=== PATIENT | male | born 1960 | race Caucasian/White ===

== ENCOUNTER 2024-05-16 22:13 | Observation (INO) ==
[2024-05-16 22:41] LABS: ABS Eosinophils 0.1 10^3/uL (0.0-0.5); ABS Lymphocytes 0.6 10^3/uL (1.0-4.8); ABS Neutrophils 14.9 10^3/uL (1.5-7.6); Eosinophil % 0.5 %; Hematocrit 51.9 % (38-53); Hemoglobin 17.5 g/dL (13.2-16.3); Lymphocyte % 3.6 %; Mean Corpuscular Hemoglobin 30.1 pg (27-33); Mean Corpuscular Hgb Conc 33.8 g/dL (31-36); Mean Platelet Volume 8.7 fL (7.5-11.2); Platelet Count 272 10^3/uL (150-450); Red Blood Count 5.83 10^6/uL (4.06-5.63); Red Cell Distribution Width 14.3 % (12-17); White Blood Count 16.6 10^3/uL (3.6-10.2)
[2024-05-16 22:48] LABS: INR 1.13 (0.85-1.14)
[2024-05-16] MEDS: Lactated Ringers 1000 ml BAG 1,000 ML IV ONE (22:54)
[2024-05-16 23:11] LABS: High Sens Troponin Baseline 4 pg/mL (<20)
[2024-05-16 23:24] LABS: ALT 57 U/L (7-52); Albumin 5.1 g/dL (3.2-5.2); Albumin/Globulin Ratio 1.9 (1-3); Alkaline Phosphatase 64 U/L (35-149); Anion Gap 12 mmol/L (2-16); Blood Urea Nitrogen 21 mg/dL (6-24); CO2 Carbon Dioxide 25 mmol/L (22-32); Calcium 10.2 mg/dL (8.6-10.3); Chloride 101 mmol/L (101-111); Creatinine, Serum 1.31 mg/dL (0.67-1.17); Globulin 2.7 g/dL (2-4); Glucose 153 mg/dL (70-100); Lipase 50 U/L (11.0-82.0); Sodium 138 mmol/L (135-145); Total Bilirubin 0.9 mg/dL (0.2-1.0); Total Protein 7.8 g/dL (6.4-8.9); eGFR CKD-EPI 60.8 (>60)
[2024-05-17] MEDS: Ondansetron 4 mg VIAL 2 MG/ML 2 ml VIAL IV ONE (00:40)
[2024-05-17 01:29] LABS: Potassium Redraw 4.2 mmol/L (3.5-5.0)
[2024-05-17 02:04] LABS: Urine Appearance Clear; Urine Bilirubin Negative (Negative); Urine Blood Negative (Negative); Urine Color Yellow; Urine Glucose Negative (Negative); Urine Ketones Negative (Negative); Urine Nitrite Negative (Negative); Urine Protein 2+ (>=100 mg/dL) (Negative); Urine Specific Gravity 1.022 (1.002-1.030); Urine Urobilinogen Negative (Negative)
[2024-05-17 02:10] LABS: Urine Bacteria Absent /HPF (Absent); Urine Red Blood Cell Absent /HPF (0-Trace); Urine Squamous Epithelial Cell Present /HPF (Absent); Urine White Blood Cell Absent /HPF (0-Trace)
[2024-05-17] MEDS: Morphine 2 MG/ML SYRINGE IV ONE (03:01)
[2024-05-17] MEDS: Lactated Ringers 1000 ml BAG 1,000 ML IV ONE (03:01)
[2024-05-17] MEDS: Pantoprazole VIAL 40 MG VIAL IV ONE (05:38)
[2024-05-17] MEDS: Lactated Ringers 1000 ml BAG 1,000 ML IV SCH (05:38)
[2024-05-17 05:57] LABS: ABS Lymphocytes 0.4 10^3/uL (1.0-4.8); ABS Monocytes 0.6 10^3/uL (0.0-1.1); ABS Neutrophils 10.8 10^3/uL (1.5-7.6); ABS Nucleated RBC 0.01 10^3/ul; Eosinophil % 0.1 %; Hematocrit 43.8 % (38-53); Hemoglobin 14.7 g/dL (13.2-16.3); Lymphocyte % 3.3 %; Mean Corpuscular Hemoglobin 29.9 pg (27-33); Mean Corpuscular Hgb Conc 33.5 g/dL (31-36); Mean Corpuscular Volume 89.3 fL (80-97); Mean Platelet Volume 8.8 fL (7.5-11.2); Platelet Count 199 10^3/uL (150-450); Red Blood Count 4.91 10^6/uL (4.06-5.63); White Blood Count 11.8 10^3/uL (3.6-10.2)
[2024-05-17 06:18] LABS: Albumin 3.9 g/dL (3.2-5.2); Calcium 8.5 mg/dL (8.6-10.3); Creatinine, Serum 1.23 mg/dL (0.67-1.17); Magnesium 1.4 mg/dL (1.9-2.7); Potassium 4.6 mmol/L (3.5-5.0); Total Bilirubin 0.8 mg/dL (0.2-1.0); Total Protein 5.9 g/dL (6.4-8.9); eGFR CKD-EPI 65.6 (>60)
[2024-05-17 06:33] LABS: TSH Ultra Thyroid Stim Horm 0.65 mcIU/mL (0.34-5.60)
[2024-05-17] MEDS: Magnesium Sulfate 2 gm BAG 2 GM/50 ML BAG IVPB ONE (07:30)
[2024-05-17] MEDS: Magnesium Sulfate IV 1GM/100ML 1 GM/100 ML BAG IV ONE (08:46)
[2024-05-17] MEDS: Sucralfate 1 gm SUSP 1 GM/10 ML UDC PO SCH (11:20)
[2024-05-18] MEDS: Morphine 2 MG/ML SYRINGE IV PRN (05:41)
[2024-05-18] MEDS: Pantoprazole Packet (NF) 40 MG GRANPKT.DR PO SCH (09:19)
[2024-05-18 09:23] VITALS: BP 123/87
== END 2024-05-18 11:45 | disposition home or self-care (01) ==
LOC: ED 22:13 → EDHOLD 22:13 → SUATTDRO 05-17 03:11 → MED 05-17 11:36
PROVIDERS: ADMIT Internal Medicine; ATTEND Internal Medicine